=== PATIENT | female | born 1995 | race Caucasian/White ===

== ENCOUNTER 2016-08-29 23:30 | Emergency (ER) | payer OTHER ==
[~2016-08-29] VITALS: Ht 175.3 cm; Wt 90.7 kg
--- NOTE | 2016-08-30 01:14 | ED GI/GU/ABDOMINAL COMPLAINT ---
History of Present Illness General Chief Complaint: Abdominal Pain/Flank Pain Stated Complaint: ABD PAIN X'S 4 HRS PER PT Source: patient Exam Limitations: no limitations Vital Signs & Intake/Output Vital Signs & Intake/Output Vital Signs Date Time Temp Pulse Resp B/P Pulse O2 O2 Flow FiO2 Ox Delivery Rate 08/30 0336 98.3 74 18 118/76 98 Room Air 08/30 0127 86 18 132/72 98 Room Air 08/30 0007 98.3 84 18 137/81 98 Room Air Triage Note: PER PT "IM HAVING REALLY BAD ABDOMINAL PAIN FOR 4 HOURS NOW." PER PT PAIN IS STABBING 7/10 PAIN AT [facility] THAT RADIATES TO RLQ. PT TOOK TYLENOL AT 2000 WITH NO RELIEF, PT THEN TOOK 800MG IBUPROFEN AT 2230 WITH NO RELIEF. PT HAS HX OF KIDNEY STONES BUT PT STATES PAIN DOES NOT FEEL SIMLARLY TO KIDNEY STONES. PT ALSO C/O OF NAUSEA AND DIARRHEA FOR THE PAST COUPLE OF DAYS. Triage Nurses Notes Reviewed? yes ? N Is pt currently ? No HPI: 21/F with past medical history of hypothyroidism presented to [place] ED complaining of abdominal pain that started for the first time ever 4 hours ago. At the beginning the pain was on the umbilical area but now it shifted to the right lower quadrant. Pain is 7/10, stabbing, and nonradiating. Pain is associated with poor appetite, diarrhea and nausea but without vomiting. She reported watery nonbloody diarrhea for the last 2 days. Patient does not have any history of inflammatory bowel disease, she also denies family history of inflammatory bowel disease. Patient did not receive any antibiotic during the last 2 months. Patient reported regular menstrual cycle, last for 7 days monthly. She is on her third day of the cycle however she denies any similar pain with her menstrual periods previously. (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) Medical History Any Pertinent Medical History? see below for history Surgical History Surgical History: non-contributory Family History Hx Contributory? No (KODY PELAYO,MYRANDA Block) Review of Systems Review of Systems Constitutional: Denies: chills, fever, weakness. Respiratory: Denies: cough, short of breath, wheezing. Cardiovascular: Denies: chest pain, orthopena, palpitations, peripheral edema, syncope. GI: Reports: abdominal pain (right lower quadrant), diarrhea. Denies: constipation, bloody stool. Genitourinary: Denies: dysuria, hematuria. ([facility]) Review of Systems EENTM: Reports: no symptoms. Musculoskeletal: Reports: no symptoms. Skin: Reports: no symptoms. Neurological/Psychological: Reports: no symptoms. Hematologic/Endocrine: Reports: no symptoms. Immunologic/Allergic: Reports: no symptoms. All Other Systems: Reviewed and Negative (KODY PELAYO,MYRANDA Block) Physical Exam Physical Exam General Appearance: well developed/nourished, alert, awake, anxious, mild distress Head: atraumatic, normal appearance Eyes: Bilateral: normal appearance, PERRL, EOMI, normal inspection. Respiratory: normal breath sounds, chest non-tender, no respiratory distress, lungs clear Cardiovascular: regular rate/rhythm Gastrointestinal: increased bowel sounds, rebound tenderness on the right lower quadrant, positive psoas sign (DADA PELAYO,[facility]) Physical Exam Ears, Nose, Throat, Mouth: hearing grossly normal, moist mucous membrane Neck: normal inspection, supple, full range of motion Back: normal inspection, normal range of motion, NO CVA TENDERNESS Extremities: normal range of motion Neurologic/Psych: no motor/sensory deficits, awake, alert, oriented x 3, normal gait, normal mood/affect Skin: intact, normal color, warm/dry Core Measures ACS in differential dx? No Severe Sepsis Present: No Septic Shock Present: No (KODY PELAYO,MYRANDA Block) Progress Differential Diagnosis: appendicitis, ovarian cyst, ovarian torsion Plan of Care: Orders Procedure Date/time Status URINALYSIS 08/30 110 Complete PARTIAL THROMBOPLASTIN TIME 08/30 35 Complete PROTHROMBIN TIME 08/30 35 Complete HUMAN BETA HCG SCREEN 08/30 35 Complete COMPREHENSIVE METABOLIC PANEL 08/30 35 Complete CBC WITHOUT DIFFERENTIAL 01/10 0036 Complete Laboratory Tests 08/30/16 0205: Anion Gap 12, Estimated GFR > 60, BUN/Creatinine Ratio 15.0, Glucose 72, Calcium 8.4, Total Bilirubin 0.2, AST 14, ALT 22, Alkaline Phosphatase 65, Total Protein 6.6, Albumin 3.8, Globulin 2.8, Albumin/Globulin Ratio 1.4, Total Beta HCG NEGATIVE 08/30/16 0118: Urine Color STRAW, Urine Clarity CLEAR, Urine pH 7.0, Ur Specific [place] <= 1.005, Urine Protein NEG, Urine Ketones NEG, Urine Nitrite NEG, Urine Bilirubin NEG, Urine Urobilinogen 0.2, Ur Leukocyte Esterase NEG, Ur Microscopic EXAM NOT REQUIRED, Urine Hemoglobin NEG, Urine Glucose NEG 08/30/16 0109: PT 10.5, INR 1.00, APTT 28, CBC w Diff MAN DIFF ORDERED, RBC 4.22, MCV 88.9, MCH 30.0, RDW 12.4, MPV 8.8, Gran % 61.0, Lymphocytes % 30.7, Monocytes % 6.4, Eosinophils % 0.7, Basophils % 1.2, Absolute Granulocytes 8.0 H, Segmented Neutrophils 54, Absolute Lymphocytes 4.0 H, Lymphocytes 41, Monocytes 3, Absolute Monocytes 0.8 H, Eosinophils 2, Absolute Eosinophils 0.1, Absolute Basophils 0.2, Platelet Estimate ADEQUATE, Normocytic RBCs VERIFIED, Normochromic RBCs VERIFIED, PUBS MCHC 33.8, Fld Total RBCs Counted 100 Diagnostic Imaging: Viewed by Me: CT Scan. Discussed w/RAD: CT Scan. Radiology Impression: PATIENT: KANE WILKINS PRESENT AGE: 21 PATIENT ACCOUNT NO: [id number] : 95 LOCATION: [facility] ORDERING PHYSICIAN: MYRANDA GATES MD SERVICE DATE: 08/30/16 EXAM TYPE: CAT - CT ABD & PELVIS W IV CONTRAST EXAMINATION: CT ABDOMEN AND PELVIS WITH CONTRAST CLINICAL INFORMATION: Right lower quadrant pain COMPARISON: None. TECHNIQUE: Multidetector volumetric imaging was performed of the abdomen and pelvis before and after the IV administration of 94 mL of Optiray 320 intravenous contrast. Sagittal and coronal reformatted images were obtained on the technologist's workstation. DLP: 591 mGy-cm. FINDINGS: LUNG BASES: The visualized lung bases are unremarkable. LIVER, GALLBLADDER, AND BILIARY TREE: The liver is normal in size, shape, and attenuation. No focal hepatic lesion or biliary ductal dilatation is present. The gallbladder is contracted with no evidence of radiopaque gallstones, gallbladder wall thickening, or obvious pericholecystic inflammatory changes. PANCREAS: Unremarkable. SPLEEN: Unremarkable. ADRENAL GLANDS: Unremarkable. KIDNEYS AND URETERS: The kidneys are normal in size, shape, and attenuation. No hydronephrosis, hydroureter, or calculi seen. No perinephric stranding. BLADDER: Unremarkable. GASTROINTESTINAL TRACT: The stomach and small bowel appear unremarkable. No dilated loops of bowel or evidence of obstruction. Fecalization of the distal ileum suggests slow transit. The appendix is normal. No colonic wall thickening or inflammatory change. No free air or free fluid. ABDOMINAL WALL: No significant hernia is appreciated. LYMPH NODES: Normal. VASCULAR: Unremarkable. PELVIC VISCERA: The uterus and adnexa are unremarkable. Tampon is noted. OSSEOUS STRUCTURES: Unremarkable. IMPRESSION: No acute findings of the abdomen or pelvis. Normal appendix. No acute inflammatory changes. DICTATED BY: MARSHA LUNA MD DATE /TIME DICTATED:08/30/16305 PERSONNEL SECURITY SPECIALIST:MARQUES DATE/TIME TRANSCRIBED: 08/30/16305 CONFIDENTIAL, DO NOT COPY WITHOUT APPROPRIATE AUTHORIZATION. < Electronically signed in Other Vendor System> SIGNED BY: MARSHA LUNA MD 08/30/16311 Initial ED EKG: none Comments: Patient and family have been updated on lab work and CAT scan results. Questions up and answered. (KODY PELAYO,MYRANDA Block) Departure Departure Condition: Stable Departure Forms: Customer Survey General Discharge Information ([facility]ADA PEL[facility] Departure Disposition: HOME OR SELF CARE Clinical Impression Primary Impression: Abdominal pain Qualifiers: Abdominal location: right lower quadrant Qualified Code: R10.31 - Right lower quadrant pain Referrals: KEV PELAYO,MARIANO Harvey PATIENT HAS NO PRIMARY CARE DR (PCP/Family) Additional Instructions: REUTRN IF SYMPTOMS WORSEN OR FOR ANY CONCERNS Prescriptions: Current Visit Scripts Hyoscyamine (Levsin) 1 TAB PO Q4 PRN ABDOMINAL PAIN #20 TAB Resident Co-Sign Statement Statement: ED Attending supervision documentation- [X] I saw and evaluated the patient. I have also reviewed all the pertinent lab results and diagnostic results. I agree with the findings and the plan of care as documented in the Resident's documentation. [X] I have reviewed the ED Record and agree with the Resident's documentation. [] Additions or exceptions (if any) to the Resident's note and plan are summarized below: [Patient presents with right lower quadrant pain for the past 4 hours. The pain started periumbilically and then migrated to the right lower quadrant. There is no radiation. Pain is constant. The pain is worse with walking. The pain is sharp and crampy in nature. The pain is 8 out of 10. There is no dysuria. Positive nausea and anorexia but no vomiting. Patient has been suffering watery diarrhea for the past 2 days. No family history or personal history of inflammatory bowel disease. Patient has not noticed any blood or mucus in her stool. On exam she is tender in the right lower quadrant with rebound. Rovsing sign is negative. We'll check lab work and obtain a CAT scan.] (KODY PELAYO,MYRANDA Block)
[2016-08-30 01:17] LABS: ABSOLUTE BASOPHIL COUNT 0.2 /CUMM (0.0-0.2); ABSOLUTE EOSINOPHIL COUNT 0.1 /CUMM (0.0-0.7); ABSOLUTE MONOCYTE COUNT 0.8 /CUMM (0.10-0.60); BASOPHIL % 1.2 % (0.0-2.0); EOSINOPHIL % 0.7 % (0-5); HEMATOCRIT 37.5 % (37-47); MEAN CORPUSCULAR HGB CONC 33.8 G/DL (33.0-37.0); MEAN CORPUSCULAR VOLUME 88.9 FL (81.0-99.0); MEAN PLATELET VOLUME 8.8 FL (7.4-10.4); PLATELET COUNT 268 /CUMM (130-400); RBC DISTRIBUTION WIDTH 12.4 % (11.5-14.5); RED BLOOD CELL CT 4.22 /CUMM (4.20-5.40); WHITE BLOOD CELL COUNT 13.1 /CUMM (4.8-10.8)
[2016-08-30 01:25] LABS: PT 10.5 SEC (9.4-12.5); PTT 28 SEC (25-37)
--- NOTE | 2016-08-30 03:12 | CT SCAN REPORT ---
EXAMINATION: CT ABDOMEN AND PELVIS WITH CONTRAST CLINICAL INFORMATION: Right lower quadrant pain COMPARISON: None. TECHNIQUE: Multidetector volumetric imaging was performed of the abdomen and pelvis before and after the IV administration of 94 mL of Optiray 320 intravenous contrast. Sagittal and coronal reformatted images were obtained on the technologist's workstation. DLP: 591 mGy-cm. FINDINGS: LUNG BASES: The visualized lung bases are unremarkable. LIVER, GALLBLADDER, AND BILIARY TREE: The liver is normal in size, shape, and attenuation. No focal hepatic lesion or biliary ductal dilatation is present. The gallbladder is contracted with no evidence of radiopaque gallstones, gallbladder wall thickening, or obvious pericholecystic inflammatory changes. PANCREAS: Unremarkable. SPLEEN: Unremarkable. ADRENAL GLANDS: Unremarkable. KIDNEYS AND URETERS: The kidneys are normal in size, shape, and attenuation. No hydronephrosis, hydroureter, or calculi seen. No perinephric stranding. BLADDER: Unremarkable. GASTROINTESTINAL TRACT: The stomach and small bowel appear unremarkable. No dilated loops of bowel or evidence of obstruction. Fecalization of the distal ileum suggests slow transit. The appendix is normal. No colonic wall thickening or inflammatory change. No free air or free fluid. ABDOMINAL WALL: No significant hernia is appreciated. LYMPH NODES: Normal. VASCULAR: Unremarkable. PELVIC VISCERA: The uterus and adnexa are unremarkable. Tampon is noted. OSSEOUS STRUCTURES: Unremarkable. IMPRESSION: No acute findings of the abdomen or pelvis. Normal appendix. No acute inflammatory changes.
[2016-08-30 03:36] VITALS: BP 118/76
[2016-08-30] MEDS ORDERED: LEVSIN0.125 M1 PO (03:39)
[2016-08-30] MEDS ORDERED: NUVARING VAGIN1 EACH VG (03:56)
== END 2016-08-30 03:58 ==
LOC: ERH 23:30
PROVIDERS: Student in an Organized Health Care Education/Training Program
DX: R10.31 Right lower quadrant pain (principal)
CPT/HCPCS: 74177; 81003; 96374; 96375; J2405